=== PATIENT | female | born 1950 | race Caucasian/White ===

== ENCOUNTER 2016-11-03 15:43 | Emergency (ER) | payer OTHER ==
[~2016-11-03] VITALS: Ht 154.9 cm; Wt 70.0 kg
[~2016-11-03 15:43] MED LIST: AMLO-147 PO; AUG875 PO; CIPR-173 PO; GLIM4TAB PO; HYDR-3498 PO; HYDR-3612 PO; HYDR25TA6 PO; METF500T4 PO; NAPR-688 PO; ONDA4TAB35 PO
[2016-11-03 15:45] VITALS: Ht 154.9 cm; Wt 70.0 kg
--- NOTE | 2016-11-03 17:18 | ERD ---
ER Documentation Chief Complaint Date/Time DATE: 11/03/16 TIME: 17:08 Chief Complaint pt bib self with c/o right lower leg reddness, no open wounds noted HPI 66 year old female comes in with right lower leg redness x 2-3 days. Patient states she has a history of diabetes, lipidemia, hypertension. She states that the pain is localized and achy. She denies trauma, fever or chills. She states she had an injury with a praful in her leg 26 years ago. ROS All systems reviewed and are negative except as per history of present illness. Medications Home Meds Active Scripts Ibuprofen* (Motrin*) 600 Mg Tab, 600 MG PO Q6, #30 TAB Prov:KATHARINE GOETZ PA-C 11/03/16 Sulfamethoxazole/Trimethoprim* (Bactrim Ds* Tablet) 1 Each Tablet, 1 TAB PO BID , #20 TAB Prov:KATHARINE GOETZ PA-C 11/03/16 Cephalexin* (Keflex*) 500 Mg Capsule, 500 MG PO QID for 10 Days, CAP Prov:KATHARINE GOETZ PA-C 11/03/16 Amoxicillin-Clavulanate K* (Augmentin*) 875 Mg Tab, 875 MG PO BID, #14 TAB 0 Refills Prov:RORY CLARK PA-C 01/21/15 Hydrocodone Bit-Acetaminophen* ([place]*) 5-325 Mg Tab, 1 TAB PO DAILY Y for PAIN , #15 TAB 0 Refills Prov:RORY CLARK PA-C 01/21/15 Reported Medications Hydrocodone Bit-Acetaminophen* ([place]*) 1 Tab Tab, 1 TAB PO Q6 Y 04/23/12 Ciprofloxacin Hcl (Cipro) 500 Mg Tablet, 500 MG PO BID 04/23/12 Ondansetron Hcl* (Zofran* ODT) 4 Mg/Tab Tab.rapdis, 4 MG PO Q6 Y 04/23/12 Naproxen* (Naproxen*) 500 Mg Tablet, PO BID 04/23/12 Metformin* (Glucophage*) 500 Mg Tab, PO BID 04/23/12 Glimepiride* (Glimepiride*) 4 Mg Tablet, PO DAILY 04/23/12 Amlodipine Besylate* (Amlodipine Besylate*) 10 Mg Tablet, PO DAILY 04/23/12 Hydrochlorothiazide (Hydrochlorothiazide) 25 Mg Tablet, PO DAILY 04/23/12 Allergies Allergies: Coded Allergies: No Known Drug Allergies (Verified Allergy, Unknown, 11/03/16) PMhx/Soc History of Surgery: Yes (CYST REMOVAL ) Hx Cardiac Disorders: Yes (hypertension) Hx Miscellaneous Medical Probl: Yes (DM, HIGH CHOLESTEROL) Hx Alcohol Use: No Hx Substance Use: No Hx Tobacco Use: No Physical Exam Vitals Vital Signs Date Time Temp Pulse Resp B/P Pulse Ox O2 Delivery O2 Flow Rate FiO2 11/03/16 15:45 98.3 78 18 163/86 98 Physical Exam General: Well-developed, well-nourished. The patient appears in no acute distress. HEENT: Head is normocephalic, atraumatic. No scleral icterus. Neck: Supple. Nontender. Lungs: Clear to auscultation. Normal air movement. Heart: Regular rate and rhythm. S1 and S2 are normal. No murmurs, gallops, or rubs. Abdomen: Soft, nontender, nondistended. Bowel sounds are normoactive. Extremities: RLE has swelling, there is warmth or erythema to the right distal medial aspect. pulses 2+ bilaterally. Neurologic: Alert and oriented 3. No focal deficits. Skin: Normal turgor. No rash or lesions. Results 24 hrs DIAGNOSTIC IMAGING REPORT Patient: ELLE AGUILAR : 1950 Age: 66 Sex: F MR #: [id number] DOS: 11/03/16 1705 Ordering MD: KATHARINE GOETZ PA-C Location: [facility] Room/Bed: PROCEDURE: Ultrasound of the right lower extremity venous system. CLINICAL INDICATION: Right leg pain and swelling, deep venous thrombosis TECHNIQUE: Garcia scale with and without compression, color doppler, spectral doppler of the venous system of the right lower extremity was performed. Venous augmentation maneuvers were utilized. COMPARISON: No prior studies are available for comparison. FINDINGS: Common femoral vein: Patent. Femoral vein: Patent. Popliteal vein: Patent. Calf veins: Patent. No soft tissue abnormalities are identified. IMPRESSION: No evidence of a deep vein thrombosis within the right lower extremity. RPTAT: AADD .Carl England MD, MD Date Time Electronically viewed and signed by .Carl England MD, on 11/03/2016 17:42 .B/ CC: KATHARINE GOETZ PA-C Procedures/MDM MDM: 66-year-old female comes in with right lower leg pain and swelling for about 2-3 days, consistent with cellulitis. Patient does not have any history of trauma associated, but does have right lower leg swelling that is most likely secondary to inflammation and infection. Ultrasound was done of the right lower extremity and was negative for DVT. There are no signs of compartment syndrome, arterial occlusion, limb threatening process. She will be given Keflex, Bactrim and ibuprofen, and is to recheck the area 1-2 days. Patient's blood pressure was elevated (>120/80) but appears stable without evidence of hypertension emergency or urgency. The patient was counseled about the risks of hypertension and urged to pursue outpatient monitoring and therapy within a week with their primary care physician. Departure Diagnosis: Primary Impression: Pain of right leg Condition: Good KATHARINE GOETZ PA-C Nov 03, 2016 17:18
--- NOTE | 2016-11-03 17:42 | RADRPT ---
PROCEDURE: Ultrasound of the right lower extremity venous system. CLINICAL INDICATION: Right leg pain and swelling, deep venous thrombosis TECHNIQUE: Garcia scale with and without compression, color doppler, spectral doppler of the venous system of the right lower extremity was performed. Venous augmentation maneuvers were utilized. COMPARISON: No prior studies are available for comparison. FINDINGS: Common femoral vein: Patent. Femoral vein: Patent. Popliteal vein: Patent. Calf veins: Patent. No soft tissue abnormalities are identified. IMPRESSION: No evidence of a deep vein thrombosis within the right lower extremity. RPTAT: AADD .Carl England MD, MD Date Time Electronically viewed and signed by .Carl England MD, on 11/03/2016 17:42 .B/
[2016-11-03] MEDS ORDERED: SULF1TAB31 PO (17:51)
[2016-11-03] MEDS ORDERED: CEPH-443 PO (17:51)
[2016-11-03] MEDS ORDERED: IBUP-1542 PO (17:51)
== END 2016-11-03 17:50 | disposition home or self-care (01) ==
LOC: FTE 15:43
DX: M79.604 Pain in right leg (principal); I10 Essential (primary) hypertension; E11.9 Type 2 diabetes mellitus without complications; Z79.84 Long term (current) use of oral hypoglycemic drugs
CPT/HCPCS: 93971; Z7502